=== PATIENT | male | born 1960 | race Caucasian/White ===

== ENCOUNTER 2016-07-07 08:31 | Inpatient (IN) | payer BC ==
[2016-07-07] MEDS ORDERED: ERTAPENEM 1 GM in NS 100 ML IV ONE (09:00)
[2016-07-07] MEDS ORDERED: hydrALAZINE 20 MG/ML VIAL IV PRN (09:48)
[2016-07-07] MEDS ORDERED: MEPERIDINE 25 MG/ML TUBEX IV PRN (09:48)
[2016-07-07] MEDS ORDERED: LABETALOL 20 MG/4 ML SYRINGE IV PRN (09:48)
[2016-07-07] MEDS ORDERED: ONDANSETRON HCL 4 MG ODT TAB PO PRN (09:48)
[2016-07-07] MEDS ORDERED: HYDROmorphone 1 MG INJECTION IV PRN ×2 (09:48)
[2016-07-07] MEDS ORDERED: FENTANYL 100 MCG/2 ML VIAL IV PRN (09:48)
[2016-07-07] MEDS ORDERED: ONDANSETRON HCL 4 MG/2 ML VIAL IV PRN ×2 (09:48→14:20)
--- NOTE | 2016-07-07 09:53 | HIM.ANES ---
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) Consented Procedure: LAPAROSCOPIC SIGMOID COLECTOMY - Focused Review of Systems Cardiac History: No: Hx Cardiac Disorders HEENT: Yes: Cataracts, Hx Vision Problem (GLASSES), Other HEENT Problems Hx Other HEENT Problems: SEASONAL ALLERGIES, RHINITIS Respiratory: Yes: Hx Snoring Gastrointestinal: Yes: Hx Gastroesophageal Reflux Disease (CONTROLLED WITH DIET) , Hx Gastrointestinal Disorders, Hx Colonoscopy (05/2016) Neurological/Musculoskeletal: Yes: Hx Back Pain No: Hx Neurological Disorders Psychological: Yes Hx Mental/Emotional Disorders HX Other Psyco/Soc Problems: INSOMNIA Endocrine: Yes: Hx Insulin Dependent Diabetes Blood/Autoimmune: No: Hx AIDS, Hx Hepatitis (type) Smoking Status: Former smoker Surgical History: Yes: Knee (RIGHT KNEE ARTHROSCOPIC SX X3) - Focused Physical Exam NPO since: 07/06/162099 Mallampati: Class II Thyromental Distance: Greater than 3 Neck: Full Range of Motion Dental: Loose/Decaying Teeth Cardiovascular/Chest: Normal Respiratory: Lungs clear Any problems with anesthesia, including nausea and vomiting?: No Any relatives with a history of Malignant Hyperthermia?: No Beta Jovani given (if appropriate): N/A Does the patient have a history of Motion Sickness-: Yes Other: Allergies Allergy/AdvReac Type Severity Reaction Status Date / Time codeine [Codeine] Allergy Mild Itching Verified 07/07/16 09:04 Home Medications Medication Instructions Recorded Last Taken Type Hydrocodone/Acetaminophen [Vicodin 1 - 2 tabs PO TID PRN #10 tablet 11/25/12 Rx 5-300 mg Tablet] Dapagliflozin/Metformin HCl 1 each PO DAILY 07/06/16 07/05/16 07:30 History [Xigduo Xr 10 mg-1,000 mg Tab] Insulin Aspart [Novolog Flexpen] 10 unit SQ AC 07/06/16 07/06/16 15:30 History Insulin Glargine,Hum.rec.anlog 50 unit SQ HS 07/06/16 07/05/16 22:00 History [Jose Angel Solostlili] Tamsulosin HCl [Flomax] 0.4 mg PO DAILY 07/06/16 07/07/16 07:00 History Height and Weight Patient's height 5 ft 2 in Patient's weight 62.596 kg BMI 23.8 Vital Signs Temperature 98.6 F 01/20/17 08:46 Pulse Rate 78 07/07/16 08:46 Respiratory Rate 18 07/07/16 08:46 Blood Pressure 118/65 07/07/16 08:46 Pulse Oxygen Saturation 96 07/07/16 08:46 - Anesthetic Plan Anesthesia Type: General ASA Class: 2 -: I have examined this patient and reviewed the medical record. The patient has been assessed prior to anesthesia. Risks and benefits of anesthesia and anesthetic technique options have been discussed and all questions answered. The patient accepts the risk and desires me to proceed with the planned anesthetic.
[2016-07-07] MEDS ORDERED: BUPIVACAINE 0.5% 30 ML VIAL ONE (10:00)
[2016-07-07] MEDS ORDERED: NEOSTIGMINE 1 MG/1 ML (1:1000) INJ 10 ML MDV IM ONE (10:04)
[2016-07-07] MEDS ORDERED: ONDANSETRON HCL 4 MG/2 ML VIAL IV ONE (10:04)
[2016-07-07] MEDS ORDERED: PROPOFOL 200 MG/20 ML VIAL IV ONE (10:04)
[2016-07-07] MEDS ORDERED: FENTANYL 100 MCG/2 ML VIAL IV ONE (10:04)
[2016-07-07] MEDS ORDERED: MIDAZOLAM 2 MG/2 ML VIAL IV ONE (10:04)
[2016-07-07] MEDS ORDERED: SUCCINYLCHOLINE 20 MG/1 ML INJ 10 ML MDV IV ONE (10:04)
[2016-07-07] MEDS ORDERED: DEXAMETHASONE 4 MG/ML VIAL IV ONE (10:04)
[2016-07-07] MEDS ORDERED: PHENYLEPHRINE 10 MG/ML VIAL IC ONE (10:04)
[2016-07-07] MEDS ORDERED: GLYCOPYRROLATE 1 MG VIAL IM ONE (10:04)
[2016-07-07] MEDS ORDERED: FENTANYL 250 MCG/5 ML VIAL IV ONE (10:04)
[2016-07-07] MEDS ORDERED: LIDOCAINE 100 MG PFS IV ONE (10:04)
[2016-07-07] MEDS ORDERED: NIMBEX 10 MG/5 ML VIAL IV ONE (10:05)
[2016-07-07] MEDS ORDERED: METHYLENE BLUE 10 MG/ML VIAL ONE (10:52)
--- NOTE | 2016-07-07 13:03 | HIMOPRPT ---
DATE OF PROCEDURE: 07/07/16 PREOPERATIVE DIAGNOSIS: Sigmoid colon cancer, for the clinical staging please see the history and physical POSTOPERATIVE DIAGNOSIS: Same, final pathology pending PROCEDURE: Laparoscopic sigmoid colon resection with primary anastomosis, laparoscopic mobilization of splenic flexurey. SURGEON: Omid Holland M.D. ANESTHESIA: General anesthesia with monitored anesthesia care. SPECIMEN: Sigmoid colon, proximal rectum. SPONGE COUNT: Correct. PACKINGS AND DRAINS: None PATIENT CONDITION: Stable. ESTIMATED BLOOD LOSS: 13 cc. OPERATIVE FINDINGS AND TECHNIQUE: With consent, the patient was brought to the operative suite, placed in supine position. Following general anesthesia, Vasquez catheter was placed. Following this the rigid proctosigmoidoscope was placed in the anal area and the colorectal mass was identified approximately 14-15 cm up. Tattooing with methylene blue was achieved. This proceeded without incident. The abdomen and perineal/anal areas were then prepped and draped in usual fashion. Upper midline incision was made. Dissection was carried along on the musculofascial layers down the level of the fascia and peritoneal cavity was entered under direct vision. The GelPort apparatus was placed. Abdominal cavity was insufflated with carbon dioxide. Additional trocars were then placed. A 12-mm trocar was placed in the right lower quadrant and a 5-mm trocar was placed in the right suprapubic area. In each case, skin incision was made with skin knife and trocars in the peritoneal cavity under videoscopic guidance. The tattooed area was identified just below the sacral promontory. The inferior mesenteric vessels/sigmoid vessels were isolated. Left ureter was identified during its course and was not traumatized during the course of dissection. Inferior mesenteric/sigmoid vessels were stapled across using the laparoscopic Fleischmanns stapling device with a vascular load. Mobilization of splenic flexure was then undertaken, this proceeded without incident. Following this, pelvic dissection was undertaken and an appropriate site at the sacral promontory was chosen for the distal resection margin. Mesenteric vessels were ligated and divided with a combination of the Harmonic Scalpel as well the vascular stapling device. The proximal rectum was stapled across using the stapling device as well. The colon was exteriorized. Proximal resection margin was identified and was freed up. Pursestring device was placed around this. Sutures were placed to make the pursestring. Colon was cut, and specimen was passed off as the sigmoid colon with proximal rectum. The specimen was opened on the back table and grossly the margin from the colorectal mass in the distal staple line was at least 5 cm. Serial sizing was then undertaken with the sizing device, the 29 EEA sizer fitted well and a 29 EEA stapling device was chosen for the anastomosis. The anvil was placed in the proximal colon and the pursestring device was tied around this. Following this, the dental ceramist assistant went to the perineal area, and serial dilatation of the rectal stump was accomplished using the sizers. The 29 EEA stapling device was then placed up the anal canal. The post was brought out to just above the staple line of the rectal stump. The post was attached the anvil. The stapler device was closed, fired, and brought up the anal area. The 2 excellent complete donuts were noted. The pelvic area then irrigated with saline and the rigid proctosigmoidoscope was then placed through the anal verge, and air water leak test was performed, showing no evidence of any bubbles, no evidence of any air leak. Pelvic area was suctioned free. The fascia of the 12 mm trocar site was then closed with 0 Vicryl suture in an interrupted fashion. Abdominal cavity had been irrigated and dried . There was no bloody drainage. Hemostasis was achieved. Seprafilm was placed in the abdominal cavity. The midline upper abdominal incision and musculofascial layers were closed using 1 PDS loop in a running fashion. Wound was irrigated and dried. Each incision was injected with 0.5% Marcaine. Each skin was approximated using 4 O Monocryl subcuticular fashion. . Abdominal wound was cleansed and dried. Dermabond, 2 x 2 gauze, and Tegaderm dressings were applied to each of the wounds. The patient was subsequently awakened in the operative suite, extubated in the operative suite, taken to the recovery room in stable condition. Findings as described. At termination of procedure, all instrument, sponge, and needle counts were correct. Final pathology is pending.
[2016-07-07] MEDS ORDERED: FENTANYL 100 MCG/2 ML VIAL ONE (13:19)
[2016-07-07] MEDS: FENTANYL 100 MCG/2 ML VIAL IV PRN ×2 (13:22→13:36)
[2016-07-07] MEDS ORDERED: OXYCODONE HCL 5 MG TABLET PO PRN (14:20)
[2016-07-07] MEDS ORDERED: Albuterol/Ipratropium Neb 3 ML NEB NEB PRN (14:20)
[2016-07-07] MEDS ORDERED: ACETAMINOPHEN 650 MG SUPP PR PRN (14:20)
[2016-07-07] MEDS ORDERED: ACETAMINOPHEN 325 MG/TAB TABLET PO PRN (14:20)
[2016-07-07] MEDS ORDERED: ZOLPIDEM TARTRATE 5 MG TAB PO PRN (14:20)
[2016-07-07] MEDS ORDERED: PROMETHAZINE 25 MG/ML VIAL IV PRN (14:20)
[2016-07-07] MEDS ORDERED: LORAZEPAM 2 MG/ML VIAL IV PRN (14:20)
[2016-07-07] MEDS ORDERED: GLUCOSE (ORAL GEL) 15 GM TUBE PO PRN (14:20)
[2016-07-07] MEDS ORDERED: DIPHENHYDRAMINE 25 MG CAP PO PRN (14:20)
[2016-07-07] MEDS ORDERED: DEXTROSE 25 GM/50 ML PFS IV PRN (14:20)
[2016-07-07] MEDS ORDERED: Aluminum;Magnesium;Simethicone 30 ML UDC PO PRN (14:20)
[2016-07-07] MEDS ORDERED: GLUCAGON 1 MG VIAL SQ PRN (14:20)
[2016-07-07] MEDS: MORPHINE PCA 50 ML IV PRN (14:39)
[2016-07-07] MEDS: Famotidine 20 mg/50 ml RTU 20 MG/50 ML IVB IV SCH (15:25)
[2016-07-07] MEDS: LR 1,000 ML IV SCH ×2 (15:28→22:12)
[2016-07-07] MEDS ORDERED: Vaccine Screening Complete SCH (16:00)
[2016-07-07] MEDS: IBUPROFEN 600 MG TAB PO SCH ×2 (16:21→22:14)
[2016-07-07] MEDS: REGULAR INSULIN 100 UNITS/ML - 3 ML VIAL SQ SCH (17:18)
--- NOTE | 2016-07-07 17:47 | SC.ANESPOS ---
Post-Anesthesia Note LOC: Fully Awake Post-Anesthesia Assessment: Awake, Returned to Baseline, Hemodynamically Stable , Pain Control Adequate Phase I & II Recovery Complete: Yes Apparent Anesthesia Complication: No : N - Vital Signs Blood Pressure: 148/72 Pulse: 94 Resp Rate: 20 O2 Sat: 96 Temp: 97.6 F
[2016-07-08] MEDS: REGULAR INSULIN 100 UNITS/ML - 3 ML VIAL SQ SCH ×5 (00:09→21:41)
[2016-07-08] MEDS: ENOXAPARIN 40 MG/0.4 ML PFS SQ SCH (01:23)
[2016-07-08] MEDS: Famotidine 20 mg/50 ml RTU 20 MG/50 ML IVB IV SCH ×2 (02:32→15:48)
[2016-07-08] MEDS: IBUPROFEN 600 MG TAB PO SCH ×3 (05:22→21:40)
[2016-07-08 08:07] LABS: MPV 8.1 fL (7.4-10.4)
[2016-07-08 08:11] LABS: BLOOD UREA NITROGEN 14 MG/DL (9-20); CALCIUM 8.2 MG/DL (8.4-10.2); CALCULATED OSMOLALITY 267 MOs/Kg (270-290); CHLORIDE 103 mEq/L (98-107); GLUCOSE 106 MG/DL (70-99); SODIUM LEVEL 138 mEq/L (137-146)
[2016-07-08] MEDS: TAMSULOSIN HCL 0.4 MG CAP PO SCH (10:00)
--- NOTE | 2016-07-08 10:24 | PCM.SURGRO ---
- Subjective Chief Complaint: soreness at the incision Post Op Day: 1 (laparoscopic sigmoid colon resection with primary anastomosis) Patient: Reports: Feels better (Patient reports that he feels better but still has soreness at the incision.), No Flatus, No Bowel Movement, Afebrile, Ambulating (The patient reports that he has not been out of bed.). Denies: Voiding without difficulty (Vasquez catheter in), Nausea, Vomiting, Shortness of breath - Objective / Physical Exam Vital Signs: Temperature: 98.4 F (07/08/16 09:47) HR: 82 (07/08/16 09:47)RR: 18 (07/08/16 09: 47) BP: 101/57 (07/08/16 09:47)Pulse Ox: 93 (07/08/16 09:47) General: Alert, Oriented x3, Cooperative, No acute distress HEENT: Normal, Mucous membr. moist/pink Respiratory: Normal - CTA Cardiovascular: Regular rate and rhythm Gastrointestinal: Soft, Bowel Sounds (Hypoactive), Tender (expected tenderness at midline incision.). negative: Distended, Guarding, Firm, Rigid, Hernia Extremities: negative: Swelling, Edema Psych/Mental Status: Appropriate, Normal Affect, Cooperative. negative: Agitated, Anxious Neurological: Normal speech Skin: Warm,Dry and Intact, No rashes Surgical wound: Other (Dressing intact.) Lymphatics: Normal Laboratory/Diagnostics Reviewed: 07/08/16 07:20 07/08/16 07:20 - Assessment and Plan (1) Adenocarcinoma of sigmoid colon Acute C18.7 - MALIGNANT NEOPLASM OF SIGMOID COLON Present on Admission: Yes Comment/Plan: The patient is postoperative day #1. We will continue supportive care and await return of bowel function. Continue mechanical and pharmacological DVT prophylaxis. We will mobilize the patient. The treatment plan was discussed at length with the patient. All questions were answered. (2) Diabetes mellitus Acute E11.9 - TYPE 2 DIABETES MELLITUS WITHOUT COMPLICATIONS Present on Admission: Yes type 2 D D D P D D L C Comment/Plan: The patient is on sliding scale insulin. We will monitor closely.
[2016-07-08] MEDS: LR 1,000 ML IV SCH ×2 (12:13→18:32)
[2016-07-09] MEDS: ENOXAPARIN 40 MG/0.4 ML PFS SQ SCH (01:02)
[2016-07-09] MEDS: Famotidine 20 mg/50 ml RTU 20 MG/50 ML IVB IV SCH ×2 (02:05→14:56)
[2016-07-09] MEDS: LR 1,000 ML IV SCH ×3 (03:15→17:16)
[2016-07-09 06:22] VITALS: BMI 25.6
[2016-07-09] MEDS: IBUPROFEN 600 MG TAB PO SCH ×3 (06:23→23:15)
[2016-07-09] MEDS: REGULAR INSULIN 100 UNITS/ML - 3 ML VIAL SQ SCH ×3 (06:39→17:18)
[2016-07-09] MEDS: TAMSULOSIN HCL 0.4 MG CAP PO SCH (08:51)
--- NOTE | 2016-07-09 13:40 | PCM.SURGRO ---
- Subjective Chief Complaint: soreness at midline incision Post Op Day: 1 (laparoscopic sigmoid colon resection with primary anastomosis) Patient: Reports: Feels better, Tolerating liquids well, Voiding without difficulty, No Flatus, No Bowel Movement, Afebrile, Ambulating in Room, Other ( Patient reports that he felt a dull ache in the right side of his scrotum and swelling noted today while walking around.). Denies: Nausea, Vomiting, Shortness of breath - Objective / Physical Exam Vital Signs: Temperature: 98.3 F (07/09/16 05:04) HR: 80 (07/09/16 08:43)RR: 20 (07/09/16 12: 00) BP: 139/71 (07/09/16 08:43)Pulse Ox: 94 (07/09/16 08:43) General: Alert, Oriented x3, Cooperative, No acute distress HEENT: Normal Respiratory: Normal - CTA Cardiovascular: Regular rate and rhythm Gastrointestinal: Soft, Bowel Sounds (Very few bowel sounds), Tender (Expected tenderness at the incisions.), Other (There is swelling of the right and left sides of the scrotum with the right side slightly more. There is ecchymosis of the dependent portion of the scrotum. It is mildly tender.). negative: Distended, Guarding, Firm, Rigid, Hernia Extremities: negative: Swelling, Edema Psych/Mental Status: Appropriate, Normal Affect, Cooperative. negative: Agitated, Anxious Neurological: Normal speech Skin: Warm,Dry and Intact, No rashes - Assessment and Plan (1) Adenocarcinoma of sigmoid colon Acute C18.7 - MALIGNANT NEOPLASM OF SIGMOID COLON Present on Admission: Yes Comment/Plan: The patient is postoperative day #2. We will continue supportive care and await the return of bowel function. I encouraged the patient in ambulation. We will advance diet as the patient has improved bowel function. We will continue to monitor the swelling of the scrotum. I discussed the current treatment plan with the patient. All questions were answered. He voiced understanding and agreement with the plan. (2) Diabetes mellitus Acute E11.9 - TYPE 2 DIABETES MELLITUS WITHOUT COMPLICATIONS Present on Admission: Yes type 2 D D D P D D L C Comment/Plan: The patient is on sliding scale insulin.
[2016-07-09] MEDS: MORPHINE PCA 50 ML IV PRN (17:44)
[2016-07-10] MEDS: REGULAR INSULIN 100 UNITS/ML - 3 ML VIAL SQ SCH ×2 (00:26→05:32)
[2016-07-10] MEDS: ENOXAPARIN 40 MG/0.4 ML PFS SQ SCH (00:26)
[2016-07-10] MEDS: Famotidine 20 mg/50 ml RTU 20 MG/50 ML IVB IV SCH (03:41)
[2016-07-10 06:04] VITALS: BP 129/60; PULSE 77; TEMP 98.5
[2016-07-10] MEDS: IBUPROFEN 600 MG TAB PO SCH (06:22)
[2016-07-10] MEDS: TAMSULOSIN HCL 0.4 MG CAP PO SCH (07:51)
--- NOTE | 2016-07-10 08:14 | PCM.DCS92 ---
- Final/Secondary Discharge Diagnosis (1) Adenocarcinoma of sigmoid colon Resolved C18.7 - MALIGNANT NEOPLASM OF SIGMOID COLON Present on Admission: Yes Plan/Goal/Comment: Postop day 3. Bowel function has returned. Tolerating his diet. Ambulating well. Voiding well. Plan discharge home today. Instructions discussed. Follow up in the office. Await pathology. Discharge Disposition: Home Discharge Condition: Stable Cognitive Discharge Status: Unimpaired Fuctional Discharge Status: Independent Forms: Excuse Note Home Medications/ New Prescriptions: New Ibuprofen Tablet [Motrin] 600 mg PO Q8H PRN #30 tab PRN Reason: Pain Oxycodone Immediate Release [Oxy-Ir] 5 mg PO Q4H PRN #40 tab PRN Reason: Pain Promethazine HCl [Phenergan] 12.5 mg PO Q6 PRN #30 tablet PRN Reason: Nausea/Vomiting Continue Tamsulosin HCl [Flomax] 0.4 mg PO DAILY Insulin Aspart [Novolog Flexpen] 10 unit SQ TIDAC Dapagliflozin/Metformin HCl [Xigduo Xr 10 mg-1,000 mg Tab] 1 tab PO DAILY Insulin Glargine,Hum.rec.anlog [Toujeo Solostar] 50 unit SQ HS Discontinued Hydrocodone/Acetaminophen [Vicodin 5-300 mg Tablet] 1 - 2 tabs PO TID PRN # 10 tablet PRN Reason: Pain Diet at Discharge: As Tolerated Activity: No Heavy Lifting, No Driving Call Office For: Worsening Symptoms, Wound is Draining Pus, Fever over 101 F Discontinue use of:: Alcohol, All Illegal Substances, All Types of Tobacco - DC Summary Notes Hospital Course Note:: Discharge summary on patient named DASHA GEORGES admitted to [facility] on 07/07/16 by Omid Holland MD. Date of discharge is 07/10/2016. Patient was admitted on 07/07/2016 for laparoscopic sigmoid colectomy. He recovered well. He remained in the hospital until postop day 3. By the time he was passing flatus. He had no nausea or vomiting. He was tolerating regular diet well. He was voiding well. He was ambulating well. Pathology was not back at the time of discharge. On 07/10/2016 he was deemed stable candidate for discharge home. Discharge instructions were discussed at length the patient. Please see the discharge summary on the electronic medical record for full details. The patient will be followed up in the office. The patient was subsequently discharged in stable condition and he admitted verbal understanding to the discharge instructions at time of discharge. Wound Care Surgical Site: Yes Site Description (if applicable): Abdomen May Shower Starting:: Today Remove Clear Dressing In How Many Days?: Seven Ability To Perform Care (if applicable): Yes - Physical Exam Vital Signs: Initial Vitals Temperature 98.6 F 07/07/16 08:46 Pulse Rate 78 07/07/16 08:46 Respiratory Rate 18 07/07/16 08:46 Blood Pressure 118/65 07/07/16 08:46 Pulse Oxygen Saturation 96 07/07/16 08:46 Constitutional: No apparent distress Respiratory: Normal - CTA Cardiovascular: Normal - GI Auscultation: Normal Palpation: Normal Tenderness: Non tender
== END 2016-07-10 10:05 | disposition home or self-care (01) | DRG 331 ==
LOC: SDC 08:31 → MPS3 14:17
PROVIDERS: ADMIT Surgery Vascular Surgery; ATTEND Surgery Vascular Surgery
PROC: 0DBP4ZX Excision of Rectum, Percutaneous Endoscopic Approach, Diagnostic (ICD-10-PCS; 2016-07-07)
PROC: 0DTN4ZZ Resection of Sigmoid Colon, Percutaneous Endoscopic Approach (ICD-10-PCS; principal; 2016-07-07 09:40)
DX: C19 Malignant neoplasm of rectosigmoid junction (principal); E11.9 Type 2 diabetes mellitus without complications; Z79.4 Long term (current) use of insulin; E78.00 Pure hypercholesterolemia, unspecified; K21.9 Gastro-esophageal reflux disease without esophagitis; Z79.899 Other long term (current) drug therapy; Z87.891 Personal history of nicotine dependence
CPT/HCPCS: 80048; 82962; 85027; 96372; G0237; J0330; J1100; J1335; J1650; J2001; J2250; J2370; J2405; J2710; J3010; J3490; J7030; Q9968; S0028